=== PATIENT | male | born 1995 | race Caucasian/White ===

== ENCOUNTER 2019-04-26 11:03 | Day surgery (SDC) | payer OTHER ==
[2019-04-26] MEDS ORDERED: Midazolam HCl 2 mg/2 ml Vial ONE (13:14)
[2019-04-26] MEDS ORDERED: Fentanyl 100 MCG/2 ML VIAL ONE ×4 (13:14→16:38)
[2019-04-26] MEDS ORDERED: HYDROcodone/Acetaminophen 5/325 mg Tablet ONE (17:07)
--- NOTE | 2019-04-26 19:10 | RAD ---
Exam: Intraoperative fluoroscopy HISTORY: ORIF right humerus Exposure: 11.5 seconds, 0.55 mGy FINDINGS: Five intraoperative fluoroscopic views demonstrate a metallic side plate with multiple scre ws traversing the mid to distal right humerus. Alignment is near-anatomic. Fracture lucency is noted. IMPRESSION: Intraoperative fluoroscopy as above Transcribed Date/Time: 04/26/2019 7:15 PM
--- NOTE | 2019-04-26 23:44 | OP ---
DATE OF PROCEDURE: 04/26/2019 OPERATION: Open reduction and internal fixation of right distal humerus fracture. PREOPERATIVE DIAGNOSIS: Right distal humerus fracture. POSTOPERATIVE DIAGNOSIS: Right distal humerus fracture. COMPLICATIONS: None. ESTIMATED BLOOD LOSS: 100 mL. TAP GRINDER: Sara Garcia PA-C IMPLANT: Synthes metaphyseal 13-hole plate with multiple locking and nonlocking screws. INDICATIONS: Mr. Odom is a 23-year-old male, who was arm wrestling when he fractured his distal humerus. He has a displaced and comminuted fracture. He was indicated for open reduction and internal fixation to restore anatomic alignment and promote healing. Risks have been reviewed in detail. He elected to proceed with the operation. DESCRIPTION OF PROCEDURE: Mr. Odom was identified in the preoperative holding area. His correct extremity was marked. He was carried to the operating room. He was positioned supine. General anesthesia was induced. A multidisciplinary time-out was performed. The right upper extremity was prepped and draped in sterile fashion. We began the procedure with a posterior approach to the elbow. We dissected down through the subcutaneous tissues to the triceps fascia which was opened. We then worked more deeply and split the triceps muscle. This was extended proximally and distally. We took care to isolate the radial nerve proximally. The vessel loop was placed around the nerve bundle and vascular structures. We worked deep to the nerve and exposed the bone. We exposed the fracture, which was extensive and comminuted. At this point, we reduced the butterfly fragment back to the proximal aspect of the bone. This was held with a K-wire. We then placed an interfragmentary screw in this fragment of bone. Next, we reduced the main distal fragment back to the shaft. This was held with K-wires as well as reduction forceps. Again, we placed an interfragmentary screw in this component. This allowed us to remove our clamps. We then placed a 13-hole plate along the posterior aspect of the humerus. We placed 5 screws distally and 5 screws proximally. We took x-ray images confirming hardware placement and reduction. There were no complications. We thoroughly irrigated with copious lavage. At this point, we closed appropriately in layers starting with the triceps fascia followed by superficial tissues. A sterile dressing was applied. The patient was taken to the recovery room at this point in good condition. Job ID: [id number]
== END 2019-04-26 18:00 | disposition home or self-care (01) ==
LOC: SDC 11:03
PROVIDERS: ATTEND Orthopaedic Surgery
DX: S42.491A Other displaced fracture of lower end of right humerus, initial encounter for closed fracture (principal); G89.18 Other acute postprocedural pain; Y93.73 Activity, racquet and hand sports
CPT/HCPCS: 76000; C1713; J0690; J2250; J3010